=== PATIENT | male | born 1935 ===

== ENCOUNTER 2018-05-03 03:28 | Inpatient (IN) | payer MEDICARE, OTHER ==
[~2018-05-03] VITALS: Ht 154.9 cm; Wt 59.0 kg
[2018-05-03] VITALS (8 sets, daily range): BP systolic 161–197; BP diastolic 67–97
[2018-05-03] MEDS ORDERED: ALLO100T30 PO (05:53)
[2018-05-03] MEDS ORDERED: hydrALAzine 20 MG/ML, 1ML ONE (05:57)
[2018-05-03] MEDS ORDERED: ACETAMINOPHEN 325 MG TABLET PO PRN (06:00)
[2018-05-03] MEDS ORDERED: morphine SULFATE 10 MG/ML, 1ML IVPush PRN (06:00)
[2018-05-03] MEDS ORDERED: PLEASE ENTER ALLERGIES MC SCH (06:00)
[2018-05-03] MEDS ORDERED: LABETALOL 5MG/ML, 20ML IVPush PRN (06:00)
[2018-05-03] MEDS ORDERED: ASPIRIN 325 MG TABLET EC PO SCH (06:00)
[2018-05-03] MEDS ORDERED: ONDANSETRON 2MG/ML, 2ML IVPush PRN (06:00)
[2018-05-03] MEDS ORDERED: POLYETHYLENE GLYCOL 17 GM PACKET PO PRN (06:00)
[2018-05-03] MEDS ORDERED: hydrALAzine 20 MG/ML, 1ML IV PRN (06:00)
[2018-05-03] MEDS ORDERED: DOCUSATE 100 MG CAPSULE PO PRN (06:00)
[2018-05-03] MEDS ORDERED: ENALAPRILAT 1.25 MG/ML, 2ML IV PRN (06:00)
[2018-05-03] MEDS ORDERED: ASPI-621 PO (06:01)
[2018-05-03] MEDS ORDERED: APRE30TA2 PO (06:01)
[2018-05-03] MEDS ORDERED: ATOR80TA PO (06:01)
[2018-05-03] MEDS ORDERED: LOSA25TA6 PO (06:03)
[2018-05-03] MEDS ORDERED: FURO40TA6 PO (06:03)
[2018-05-03] MEDS ORDERED: NPH,100V SC (06:03)
[2018-05-03] MEDS ORDERED: METO50TA6 PO (06:06)
[2018-05-03] MEDS ORDERED: TAMS-11 PO (06:06)
[2018-05-03] MEDS: HEPARIN 5,000 UNITS/ML, 1ML SQ SCH ×3 (06:29→22:25)
[2018-05-03] MEDS ORDERED: FUROSEMIDE 20 MG/2 ML IV SCH (07:30)
[2018-05-03] MEDS: SODIUM CHLORIDE FLUSH 10ML SYR IVF SCH ×2 (09:05→20:07)
[2018-05-03] MEDS: SENNA/DOCUSATE TABLET PO SCH (09:05)
[2018-05-03 12:14] LABS: BASOPHILS # (AUTO) 0.01 x10^3/uL (0-0.1); BASOPHILS % (AUTO) 0 % (0-1); EOSINOPHILS # (AUTO) 0.08 x10^3/uL (0-0.4); EOSINOPHILS % (AUTO) 1 % (1-7); LYMPHOCYTES # (AUTO) 1.27 x10^3/uL (1-3.4); LYMPHOCYTES % (AUTO) 16 % (22-44); MD NO; MEAN CORPUSCULAR HEMOGLOBIN 30.9 pg (27.5-34.5); MEAN CORPUSCULAR HGB CONC 33.2 g/dL (33.2-36.2); MEAN CORPUSCULAR VOLUME 93.2 fL (81-97); MEAN PLATELET VOLUME 8.9 fL (7.4-10.4); MONOCYTES # (AUTO) 0.59 x10^3/uL (0.2-0.8); MONOCYTES % (AUTO) 7 % (2-9); NEUTROPHILS # (AUTO) 6.11 x10^3/uL (1.8-6.8); NEUTROPHILS % (AUTO) 76 % (42-75); PLATELET COUNT 109 x10^3/uL (130-400); RED CELL DISTRIBUTION WIDTH 16.5 % (9.4-14.8)
[2018-05-03] MEDS: ASPIRIN 81 MG TABLET EC PO SCH (12:16)
[2018-05-03 12:26] LABS: ALANINE AMINOTRANSFERASE 35 U/L (12-78); ALBUMIN 3.1 g/dL (3.4-5.0); ANION GAP 12 mmol/L (5-15); CALCIUM 8.8 mg/dL (8.5-10.1); CHLORIDE 109 mmol/L (98-107); CREATININE 2.78 mg/dL (0.7-1.3)
[2018-05-03 12:29] LABS: ALKALINE PHOSPHATASE 152 U/L (45-117); BILIRUBIN,TOTAL 0.9 mg/dL (0.2-1.0); TOTAL PROTEIN 7.4 g/dL (6.4-8.2)
[2018-05-03] MEDS: TAMSULOSIN 0.4 MG CAP.ER.24H PO SCH (13:00)
[2018-05-03] MEDS: INSULIN LISPRO 100 UNITS/ML, PEN SQ-INSULIN SCH ×3 (13:18→20:08)
[2018-05-03 13:25] LABS: TROPONIN I 0.865 ng/mL (0.000-0.045)
[2018-05-03] MEDS: ATORVASTATIN 80 MG TABLET PO SCH (20:07)
[2018-05-03] MEDS: METOPROLOL TARTRATE 50 MG TABLET PO SCH (20:07)
[2018-05-04 00:13] VITALS: BP 148/63
[2018-05-04 01:15] VITALS: BP 146/64
[2018-05-04 05:09] LABS: BASOPHILS # (AUTO) 0.03 x10^3/uL (0-0.1); BASOPHILS % (AUTO) 0 % (0-1); EOSINOPHILS # (AUTO) 0.18 x10^3/uL (0-0.4); EOSINOPHILS % (AUTO) 2 % (1-7); LYMPHOCYTES # (AUTO) 1.63 x10^3/uL (1-3.4); LYMPHOCYTES % (AUTO) 20 % (22-44); MD NO; MEAN CORPUSCULAR HEMOGLOBIN 31.4 pg (27.5-34.5); MEAN CORPUSCULAR HGB CONC 33.3 g/dL (33.2-36.2); MEAN CORPUSCULAR VOLUME 94.2 fL (81-97); MEAN PLATELET VOLUME 8.8 fL (7.4-10.4); MONOCYTES # (AUTO) 0.81 x10^3/uL (0.2-0.8); MONOCYTES % (AUTO) 10 % (2-9); NEUTROPHILS # (AUTO) 5.67 x10^3/uL (1.8-6.8); NEUTROPHILS % (AUTO) 68 % (42-75); PLATELET COUNT 116 x10^3/uL (130-400); RED CELL DISTRIBUTION WIDTH 16.6 % (9.4-14.8)
[2018-05-04 05:13] VITALS: BP 142/66
[2018-05-04] MEDS: HEPARIN 5,000 UNITS/ML, 1ML SQ SCH ×3 (05:15→21:39)
[2018-05-04 05:23] LABS: CALCIUM 8.7 mg/dL (8.5-10.1); CHLORIDE 110 mmol/L (98-107)
[2018-05-04 05:28] LABS: ALANINE AMINOTRANSFERASE 29 U/L (12-78); ALBUMIN 3.3 g/dL (3.4-5.0); ALKALINE PHOSPHATASE 144 U/L (45-117); ANION GAP 9 mmol/L (5-15); BILIRUBIN,TOTAL 1.3 mg/dL (0.2-1.0); CREATININE 2.75 mg/dL (0.7-1.3); TOTAL PROTEIN 7.6 g/dL (6.4-8.2)
[2018-05-04 08:23] VITALS: BP 158/70
[2018-05-04] MEDS ORDERED: LOSARTAN 25MG TABLET PO SCH (09:00)
[2018-05-04] MEDS: INSULIN LISPRO 100 UNITS/ML, PEN SQ-INSULIN SCH ×4 (09:17→21:00)
[2018-05-04] MEDS: ASPIRIN 81 MG TABLET EC PO SCH (09:56)
[2018-05-04] MEDS: METOPROLOL TARTRATE 50 MG TABLET PO SCH ×2 (09:56→21:39)
[2018-05-04] MEDS: FUROSEMIDE 40 MG TABLET PO SCH (09:56)
[2018-05-04] MEDS: TAMSULOSIN 0.4 MG CAP.ER.24H PO SCH (09:56)
[2018-05-04] MEDS: SENNA/DOCUSATE TABLET PO SCH (09:56)
[2018-05-04] MEDS: ALLOPURINOL 100 MG TABLET PO SCH (09:57)
[2018-05-04] MEDS: SODIUM CHLORIDE FLUSH 10ML SYR IVF SCH ×2 (09:57→21:39)
[2018-05-04 15:43] VITALS: BP 133/66
[2018-05-04] MEDS: ATORVASTATIN 80 MG TABLET PO SCH (21:39)
[2018-05-04 21:58] VITALS: BP 150/70
[2018-05-05 01:54] VITALS: BP 156/70
[2018-05-05] MEDS: HEPARIN 5,000 UNITS/ML, 1ML SQ SCH ×2 (05:19→14:31)
[2018-05-05 06:07] LABS: ANION GAP 9 mmol/L (5-15); CALCIUM 8.1 mg/dL (8.5-10.1); CHLORIDE 107 mmol/L (98-107); CREATININE 2.84 mg/dL (0.7-1.3)
[2018-05-05] MEDS: INSULIN LISPRO 100 UNITS/ML, PEN SQ-INSULIN SCH ×3 (07:29→16:31)
[2018-05-05 07:44] VITALS: BP 129/61
[2018-05-05] MEDS ORDERED: REGADENOSON 0.4 MG/5 ML SYRINGE ONE (08:07)
[2018-05-05] MEDS: SENNA/DOCUSATE TABLET PO SCH (08:34)
[2018-05-05] MEDS ORDERED: LOSARTAN 50MG TABLET PO SCH (09:00)
[2018-05-05] MEDS: ALLOPURINOL 100 MG TABLET PO SCH (10:29)
[2018-05-05] MEDS: METOPROLOL TARTRATE 50 MG TABLET PO SCH (10:29)
[2018-05-05] MEDS: ASPIRIN 81 MG TABLET EC PO SCH (10:29)
[2018-05-05] MEDS: FUROSEMIDE 40 MG TABLET PO SCH (10:29)
[2018-05-05] MEDS: TAMSULOSIN 0.4 MG CAP.ER.24H PO SCH (10:29)
[2018-05-05] MEDS: SODIUM CHLORIDE FLUSH 10ML SYR IVF SCH (10:29)
[2018-05-05 12:50] VITALS: BP 130/76
[2018-05-05] MEDS ORDERED: CLOPIDOGREL 300 MG TABLET PO ONE (15:00)
[2018-05-05] MEDS ORDERED: CLOP75TA PO (15:36)
[2018-05-05] MEDS ORDERED: METO50TA4 PO (16:29)
[2018-05-06] MEDS ORDERED: CLOPIDOGREL 75 MG TABLET PO SCH (09:00)
== END 2018-05-05 16:45 | disposition home or self-care (01) | DRG 280 ==
LOC: 5SO 04:51
PROVIDERS: ADMIT Family Medicine; ATTEND Family Medicine
DX: I21.4 Non-ST elevation (NSTEMI) myocardial infarction (principal); I50.33 Acute on chronic diastolic (congestive) heart failure; I13.0 Hypertensive heart and chronic kidney disease with heart failure and stage 1 through stage 4 chronic kidney disease, or unspecified chronic kidney disease; N18.4 Chronic kidney disease, stage 4 (severe); I42.9 Cardiomyopathy, unspecified; I16.0 Hypertensive urgency; I27.20 Pulmonary hypertension, unspecified; D69.6 Thrombocytopenia, unspecified; E11.22 Type 2 diabetes mellitus with diabetic chronic kidney disease; E11.43 Type 2 diabetes mellitus with diabetic autonomic (poly)neuropathy; G89.29 Other chronic pain; I77.819 Aortic ectasia, unspecified site; I25.10 Atherosclerotic heart disease of native coronary artery without angina pectoris; I08.2 Rheumatic disorders of both aortic and tricuspid valves; D64.9 Anemia, unspecified; E87.5 Hyperkalemia; M10.9 Gout, unspecified; E78.5 Hyperlipidemia, unspecified; I25.2 Old myocardial infarction; Z95.1 Presence of aortocoronary bypass graft; Z87.891 Personal history of nicotine dependence; Z95.2 Presence of prosthetic heart valve
CPT/HCPCS: 36415; 78452; 80048; 80053; 82962; 83735; 84100; 84484; 85025; 93017; 93306; G0378; J1644; J2785; A9502; C9898; J0360; J1815; J1940